=== PATIENT | male | born 1960 | race American Indian/Alaskan Native ===

== ENCOUNTER 2018-08-29 11:59 | Emergency (ER) | payer SELFPAY ==
[~2018-08-29] VITALS: Ht 162.6 cm; Wt 68.2 kg
[2018-08-29 12:24] VITALS: TEMP 98.4
[2018-08-29] MEDS ORDERED: LIDODERM 5% PATC1 EA TP (13:46)
[2018-08-29] MEDS ORDERED: FLEXERIL 1010 MG/TAB PO (13:46)
[2018-08-29 13:51] LABS: COLLECTION METHOD CLEAN CATCH
[2018-08-29 13:56] LABS: MUCOUS Present /lpf; PH 5 (5-8); SQUAMOUS EPITHELIAL 0-2 /hpf; URINE APPEARANCE Clear; URINE BACTERIA None Seen /hpf; URINE BILIRUBIN Negative (NEGATIVE); URINE BLOOD Negative (NEGATIVE); URINE COLOR Yellow; URINE GLUCOSE Negative (NEGATIVE); URINE KETONE Trace (NEGATIVE); URINE LEUKOCYTE ESTERASE Negative (NEGATIVE); URINE NITRATE Negative (NEGATIVE); URINE PROTEIN(semi-quant) Negative (NEGATIVE); URINE UROBILINOGEN >=4.0 mg/dL (NEGATIVE)
[2018-08-29 14:30] VITALS: BP 102/63; PULSE 68
== END 2018-08-29 14:31 | disposition home or self-care (01) ==
LOC: COL.ER 11:59
PROVIDERS: Physician Assistant
DX: M54.5 Low back pain (principal); F17.210 Nicotine dependence, cigarettes, uncomplicated; Z90.89 Acquired absence of other organs; Z88.0 Allergy status to penicillin

== ENCOUNTER 2019-06-25 19:24 | Emergency (ER) | payer SELFPAY ==
[~2019-06-25] VITALS: Ht 165.1 cm; Wt 68.2 kg
[~2019-06-25 19:24] MED LIST: FLEXERIL 1010 MG/TAB PO; LIDODERM 5% PATC1 EA TP
[2019-06-25 19:33] VITALS: BP 113/68; TEMP 97.8
[2019-06-25] MEDS ORDERED: ANTIBIOTIC (19:47)
[2019-06-25] MEDS ORDERED: CLEOCIN HCL300 MG PO (19:58)
[2019-06-25 20:20] VITALS: PULSE 61
== END 2019-06-25 20:22 | disposition home or self-care (01) ==
LOC: COL.ER 19:24
DX: K02.9 Dental caries, unspecified (principal); I10 Essential (primary) hypertension; F17.210 Nicotine dependence, cigarettes, uncomplicated

== ENCOUNTER 2020-06-21 16:22 | Emergency (ER) | payer SELFPAY ==
[~2020-06-21] VITALS: Ht 157.5 cm; Wt 68.2 kg
[~2020-06-21 16:22] MED LIST changes: +ANTIBIOTIC; +CLEOCIN HCL300 MG PO
[2020-06-21 16:33] VITALS: TEMP 97.5
[2020-06-21 16:54] LABS: BASO % 0.4 % (0.0-2.0); EOS # 0.3 (0.0-0.7); GRAN # 3.4 (1.4-6.5); GRAN % 50.3 % (42.2-75.2); HEMATOCRIT 41.7 % (42.0-52.0); LYMPH # 2.6 (1.2-3.4); LYMPH % 37.6 % (20.0-51.0); MEAN CELL VOLUME 76 fl (80.0-100.0); MEAN CORPUSCULAR HEMOGLOBIN 24 pg (27.0-31.0); MEAN CORPUSCULAR HGB CONC 31 g/dl (33.0-37.0); MEAN PLATELET VOLUME 8.1 fl (7.4-10.4); MONO # 0.4 (0.1-0.6); MONO % 6.1 % (1.7-9.3); PLATELET COUNT 309 K/mm3 (130-400); RED BLOOD COUNT 5.48 M/mm3 (4.20-5.60); REDCELL DISTRIBUTION WIDTH-CV 15.4 % (11.5-14.5)
[2020-06-21 17:00] LABS: INR 1.2 (0.8-3.0); PROTHROMBIN TIME 13.5 SECONDS (9.7-12.8)
[2020-06-21 17:04] LABS: ALANINE AMINOTRANSFERASE 27 U/L (4-49); ALBUMIN 3.7 gm/dL (3.5-5.0); ALKALINE PHOSPHATASE 95 U/L (50-136); ANION GAP 7 mmol/L (7-16); AST,SGOT 36 U/L (15-37); BILIRUBIN,TOTAL 0.4 mg/dL (0.0-1.0); BLOOD UREA NITROGEN 26 mg/dL (9-20); CALCIUM 8.9 mg/dL (8.4-10.2); CARBON DIOXIDE 22 mmol/L (22-30); CHLORIDE 108 mmol/L (98-107); CREATININE, serum 0.95 (0.66-1.25); GLUCOSE 120 mg/dL (74-106); LIPASE 101 U/L (23-300); POTASSIUM 3.9 mmol/L (3.4-5.0); SODIUM 137 mmol/L (137-145); TOTAL PROTEIN 6.9 gm/dL (6.4-8.2)
[2020-06-21 17:15] LABS: TROPONIN-I < 0.012 ng/mL (0.000-0.035)
[2020-06-21] MEDS ORDERED: FLAGYL500 MG PO (18:25)
[2020-06-21] MEDS ORDERED: CIPRO 500MG TA500 MG PO (18:25)
[2020-06-21 18:43] VITALS: BP 144/70; PULSE 68
== END 2020-06-21 18:43 | disposition home or self-care (01) ==
LOC: COL.ER 16:22
PROVIDERS: Physician Assistant
DX: K52.9 Noninfective gastroenteritis and colitis, unspecified (principal); F17.210 Nicotine dependence, cigarettes, uncomplicated; Z88.0 Allergy status to penicillin
CPT/HCPCS: C9113; J7030; Q9967

== ENCOUNTER 2020-07-18 08:25 | Day surgery (SDC) | payer SELFPAY ==
[~2020-07-18] VITALS: Ht 167.6 cm; Wt 74.1 kg
[~2020-07-18 08:25] MED LIST changes: +CIPRO 500MG TA500 MG PO; +FLAGYL500 MG PO
[2020-07-18 09:10] VITALS: BP 99/68; PULSE 48; TEMP 99.2
[2020-07-18 10:20] VITALS: BP 100/80; PULSE 54; TEMP 97.7
--- NOTE | 2020-07-18 10:20 | NUR ---
Patient arrives back to [facility] alert, denies nausea. Patient monitor applied, vitals stable. Patient given coffee and muffin and resting comfortably in chair.
[2020-07-18 10:35] VITALS: BP 112/97; PULSE 71
[2020-07-18 10:50] VITALS: BP 93/72; PULSE 50
--- NOTE | 2020-07-18 10:50 | NUR ---
Patient tolerated coffee and muffin without any nausea, denies pain. Patient reports he feels good and is ready to go home.
--- NOTE | 2020-07-18 11:10 | NUR ---
Dismissal instructions gone over with patient. Patient voices undertanding and all questions answered.
--- NOTE | 2020-07-18 11:15 | NUR ---
Patient dismissed to patient enterance via wheelchair where his niece is picking him up. Patient leaves thanking staff for services.
== END 2020-07-18 11:15 | disposition home or self-care (01) ==
LOC: SDCO 08:25
DX: K29.30 Chronic superficial gastritis without bleeding (principal); K25.7 Chronic gastric ulcer without hemorrhage or perforation; D12.2 Benign neoplasm of ascending colon; D12.5 Benign neoplasm of sigmoid colon; F17.210 Nicotine dependence, cigarettes, uncomplicated; Z20.822 Contact with and (suspected) exposure to COVID-19; Z88.0 Allergy status to penicillin
CPT/HCPCS: J2704; J7120

== ENCOUNTER 2020-09-29 13:03 | Emergency (ER) | payer SELFPAY ==
[~2020-09-29] VITALS: Ht 162.6 cm; Wt 70.5 kg
[2020-09-29 13:21] VITALS: TEMP 97.8
[2020-09-29 15:16] LABS: COLLECTION METHOD CLEAN CATCH
[2020-09-29 15:22] LABS: MUCOUS Present /lpf; PH 6 (5-8); SQUAMOUS EPITHELIAL None Seen /hpf; URINE APPEARANCE Clear; URINE BACTERIA None Seen /hpf; URINE BILIRUBIN Negative (NEGATIVE); URINE BLOOD Negative (NEGATIVE); URINE COLOR Yellow; URINE GLUCOSE Negative (NEGATIVE); URINE KETONE Negative (NEGATIVE); URINE LEUKOCYTE ESTERASE Negative (NEGATIVE); URINE NITRATE Negative (NEGATIVE); URINE PROTEIN(semi-quant) Negative (NEGATIVE); URINE RBC 0-2 /hpf; URINE UROBILINOGEN Negative (NEGATIVE)
[2020-09-29] MEDS ORDERED: LIDODERM 5% PATC1 EA TP (15:44)
[2020-09-29 16:00] VITALS: BP 111/94; PULSE 70
== END 2020-09-29 16:00 | disposition home or self-care (01) ==
LOC: COL.ER 13:03
PROVIDERS: Physician Assistant
DX: M47.816 Spondylosis without myelopathy or radiculopathy, lumbar region (principal); M54.2 Cervicalgia; G89.29 Other chronic pain; F17.210 Nicotine dependence, cigarettes, uncomplicated; Z90.89 Acquired absence of other organs; Z88.0 Allergy status to penicillin
CPT/HCPCS: J1885

== ENCOUNTER → 2023-06-29 | Outpatient (CLI) | payer OTHER ==
[~2023-06-29] MED LIST changes: +OMNICEF 300MG300 MG PO; +PREDNISONE20 MG PO; +PROAIR HFA0.09 MG/AC IH; +RT ADVAIR HFA 1112 G IH; +ZITHROMAX Z PA250 MG PO
== END ==
LOC: COL.RAD 11:20
DX: R07.9 Chest pain, unspecified (principal); M54.2 Cervicalgia; M25.571 Pain in right ankle and joints of right foot; M25.511 Pain in right shoulder; Z91.81 History of falling

== ENCOUNTER → 2023-07-11 | Outpatient (CLI) | payer OTHER | LOC: COL.RAD 13:44 | DX: N50.3 Cyst of epididymis (principal) ==

== ENCOUNTER → 2023-08-17 | Outpatient (CLI) | payer OTHER | LOC: COL.RAD 09:04 | DX: M47.816 Spondylosis without myelopathy or radiculopathy, lumbar region (principal); M51.36 Other intervertebral disc degeneration, lumbar region ==

== ENCOUNTER 2023-09-01 09:00 | Outpatient (RCR) | payer OTHER | END 2023-09-04 | disposition home or self-care (01) | LOC: WSPT | DX: M54.50 Low back pain, unspecified (principal) ==